=== PATIENT | female | born 1990 | race African-American/Black ===

== ENCOUNTER 2024-04-29 22:34 | Emergency (ER) | payer SELFPAY ==
[~2024-04-29] VITALS: Ht 167.6 cm; Wt 59.0 kg
[2024-04-29] MEDS: FAMOTIDINE/PF INJ 20 MG/2 ML VIAL IV ONE (23:31)
[2024-04-29] MEDS: PANTOPRAZOLE 40 MG VIAL IV ONE (23:33)
[2024-04-29] MEDS: KETOROLAC TROMETHAMINE 15 MG/ML VIAL IV ONE (23:33)
[2024-04-29] MEDS: METOCLOPRAMIDE HCL 10 MG/2 ML VIAL IV ONE (23:33)
[2024-04-29 23:34] VITALS: BP 105/95; TEMP 98.1; O2SAT 98
== END 2024-04-29 23:47 | disposition left against medical advice (07) ==
LOC: ER 22:35
DX: R10.13 Epigastric pain (principal); Z87.19 Personal history of other diseases of the digestive system